=== PATIENT | male | born 1970 | race Caucasian/White ===

== ENCOUNTER → 2017-08-03 10:19 | Outpatient (CLI) | payer SELFPAY ==
--- NOTE | 2017-08-03 10:45 | MRI_ITS ---
STUDY: MRI LUMBAR SPINE WITHOUT CONTRAST REASON FOR EXAM: Male, 46 years old. Lower back pain and left hip pain TECHNIQUE: Standardized fat and water weighted pulse sequences were obtained in the sagittal and axial planes. COMPARISON: None FINDINGS: T12-L1: Normal endplates. Normal disc height, hydration and morphology. Normal bilateral facet joints. Normal central canal and bilateral lateral recesses. Normal bilateral intervertebral neural foramina. Decreased lumbar lordosis. There is no substantial scoliosis. Normal conus medullaris that terminates at T12-L1 L1-2: Normal endplates. Normal disc height, hydration and morphology. Normal bilateral facet joints. Normal central canal. Normal bilateral recesses and neural foramina L2-3: Endplate spurring.. Normal disc height, desiccation and tiny left foraminal disc protrusion.. Facet arthropathy.. Normal central canal and bilateral lateral recesses. Minor left neural foraminal encroachment L3-4: Endplate spurring. Normal disc height, desiccation and minor annular bulge. Normal bilateral facet joints. Normal central canal. Mild bilateral recess encroachment. Normal bilateral intervertebral neural foramina. L4-5: Endplate spurring. Normal disc height, desiccation and mild annular bulge in association with a large left posterolateral/foraminal disc extrusion with superior migration of the disc fragment.. Mild facet arthropathy.. Normal central canal. Moderate right lateral recess and neuroforaminal stenosis. Severe left lateral recess stenosis, supraarticular stenosis and neural foraminal stenosis. L5-S1: Normal endplates. Normal disc height, hydration and morphology. Mild bilateral facet arthropathy.. Normal central canal and bilateral lateral recesses. Normal bilateral intervertebral neural foramina. Normal visualized sacral ala. Normal visualized paraspinous soft tissue structures. MRI/Spine Lumbar (Routine) IMPRESSION: Multilevel disc degeneration. Multilevel spinal stenosis secondary to disc disease and bony hypertrophy most severe at L4-5 greater on the left. Findings as above Electronically Signed: Ihsan Collins MD at 18:01 EDT , Service support ,
== END ==
PROVIDERS: Family Provider Family Medicine; PCP Family Medicine
DX: M51.26 Other intervertebral disc displacement, lumbar region (principal)
CPT/HCPCS: 72148

== ENCOUNTER 2019-08-16 05:33 | Day surgery (SDC) | payer OTHER, SELFPAY ==
[2019-08-14 11:15] VITALS: BMI 24.3
--- NOTE | 2019-08-14 11:38 | HP_ITS ---
Intake Vital Signs 08/14/19 Height 5 ft 10 in 08/14/19 Weight: 170 lb 08/14/19 BMI 24.3 08/14/19 BP 169/82 H 08/14/19 Blood Pressure Location Rt brachial 08/14/19 Position Sitting 08/14/19 Respiration 18 08/14/19 Pulse 73 08/14/19 Pulse Source Monitor 08/14/19 Temp 97.5 F L 08/14/19 Temp Source Oral 08/14/19 Pulse Oximetry (%) 99 08/14/19 Oxygen Delivery Method room air Intake Visit Reasons: R Inguinal Hernia Chief Complaint: bulge right groin area Night Custodian Required: No Is patient in pain?: No Allergies No Known Allergies Allergy (Unverified 08/14/19 11:16) Medications levothyroxine 88 mcg tablet 88 mcg PO DAILY 08/14/19 [History Confirmed 08/14/19] [facility] Medical History (Updated 08/14/19 @ 11:[address] Gabe Berry MD) Inguinal hernia of right side without obstruction or gangrene (Acute) History of back problems (Acute) Hypothyroidism (Acute) Right inguinal hernia (Acute) Surgical History (Updated 08/14/19 @ 11:14 by Hannah Wright) history left ankle surgery (Acute) history right elbow surgery (Acute) Family History (Updated 08/14/19 @ 11:14 by Hannah Wright) Father Cancer pancreatic cancer Sister Thyroid disorder Social History (Updated 08/14/19 @ 11:[address] Gabe Berry MD) Smoking Status: Never smoker alcohol intake: current alcohol intake frequency: a few times a week substance use type: does not use HPI HPI HPI: BAILEY ROWE, is a 48 M who presents to the office today for HPI HPI Surgical H&P: Yes HPI: BAILEY ROWE, is a 48 M who presents to the office today for office consultation regarding a right inguinal hernia. The patient is referred by Dr. Roach and a written copy of my surgical consult recommendations will return to him. 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 He does a significant amount of hiking and hunting. He does not recall a specific episode but he was lifting a heavy game into a truck. That was several months back. He is scheduled in November to go to [place] which would require significant higher level hiking and elevation. He anticipates in being out in the [facility] for an extended period of time. He has not previously had inguinal hernia surgery. He has had right elbow and left ankle surgery. No history of DVT. He does use alcohol no tobacco. ROS General General: No weight change, appetite, fatigue, colon cancer, breast cancer or weakness HEENT HEENT: No difficulty swallowing, eye injury, eye surgery, swollen glands or hoarseness Endo Endocrine: Yes thyroid disease; no diabetes mellitus, thyroid cancer, Hair loss, heat intolerance or cold intolerance Skin Skin: No rash or changing moles Breast Breast: No left breast lump, right breast lump, nipple discharge, breast pain, abnormal mammogram, abnormal US or breast enlargement Musc Musculoskeletal: Yes back problems; no arthritis, rheumatoid arthritis, gout or joint pain Cardio Cardiovascular: No murmur, pacemaker, heart disease, atrial fibrillation, high blood pressure, heart attack, heart stent, palpitations, shortness of breat with exertion or chest pain Psych Psychiatric: No depression, anxiety or hearing voices Resp Respiratory: No shortness of breath, No sleep apnea, No cough, No COPD, No asthma, No emphysema, No wheezing Gastro Gastrointestinal: No abdominal pain, No nausea or vomiting, No diarrhea, No constipation, No blood in stool, No acid reflux, No hemorrhoids, No ulcers, No gallbladder problem, No black,tarry stools Moo Hematologic: No blood thinners, No blood disorders, No bleeding, No anemia, No blood clots Neuro Neurologic: No system reviewed and no additional complaints, except as docu, No as per HPI, No abnormal walking, No abnormal hearing, No abnormal movements, No abnormal speech, No behavioral changes, No burning sensations, No confusion, No seizure-like activity, No unsteadiness, No dizziness, No localized weakness, No frequent falls, No headache(s), No lack of coordination, No loss of vision, No memory loss, No numbness, No other visual disturbances, No radiating pain, No restless legs, No sensory deficit, No fainting, No tingling, No tremor(s), No weakness, No other Exam Const General: cooperative, healthy appearing, comfortable, no acute distress, well developed Nutritional Appearance: average body habitus Orientation: alert, awake [facility] Head: normal to inspection Eyes General: appearance normal, both eyes and all related structures Chest Chest palpation & inspection: normal inspection of the chest Breast Palpation: No nipple discharge Resp Effort & Inspection: normal respiratory effort Auscultation: clear to auscultation bilaterally Cardio Rate: regular rate Rhythm: regular rhythm Heart Sounds: no murmurs GI Palpation: soft, no hepatosplenomegaly Auscultation: normal bowel sounds Other: Testicles are descended no mass, reducible indirect right inguinal hernia, no similar defect on the left Musc Cervical Spine: normal cervical lordosis Skin General: no rashes or lesions noted Neuro General: alert, awake Extrem General: calf tenderness Psych Affect: normal affect Assessment & Plan Problems 1. Inguinal hernia of right side without obstruction or gangrene K40.90 Plan Indirect right inguinal hernia, reducible. Very physically active individual who anticipates being in the [facility] away from direct medical care. I am recommending to him a laparoscopic right inguinal hernia repair. I discussed technique, benefit, risk, alternatives. He has had an opportunity to ask and have questions answered. He is interested in proceeding with repair at a definitive time so that he can then pursue training for his upcoming adventure. He has had an opportunity to ask and have questions answered. We will schedule and proceed at his discretion. I very much appreciate the kind opportunity of assisting with surgical care. Cc: Dr. Hilton Berry M.D., F.A.C.S. Coding Level of Care Code 03223 Diagnoses Inguinal hernia of right side without obstruction or gangrene K40.90 08/14/19 1139 <Electronically signed by Gabe lindsay MD> Date _ Gabe Berry MD
--- NOTE | 2019-08-15 12:56 | EKG12_ITS ---
Test Reason : PREOP Blood Pressure : / mmHG Vent. Rate : 069 BPM Atrial Rate : 069 BPM P-R Int : 160 ms QRS Dur : 104 ms QT Int : 394 ms P-R-T Axes : 073 059 055 degrees QTc Int : 422 ms Normal sinus rhythm Normal ECG Confirmed by LOCO BARROS, JON ([id number]), image editor TISHA WILSON ([id number]) on 08/16/2019 9:01:36 AM Referred By: Gabe Berry Confirmed By:JON ADAN MD
[2019-08-15 14:07] LABS: Thyroid Stim Hormone (TSH) 0.71 uIU/mL (0.358-3.74)
[2019-08-16 05:52] VITALS: BP 150/85; PULSE 78; RESP 15; TEMP 36.7; O2SAT 100; BMI 25.0
[2019-08-16] MEDS: Lactated Ringers 1,000 ML 15 ML IV (06:01)
--- NOTE | 2019-08-16 06:09 | HP.PCM_ITS ---
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 Gabe Berry MD) Inguinal hernia of right side without obstruction or gangrene (Acute) History of back problems (Acute) Hypothyroidism (Acute) Right inguinal hernia (Acute) Surgical History (Updated 08/14/19 @ 11:14 by Hannah Wright) history left ankle surgery (Acute) history right elbow surgery (Acute) Family History (Updated 08/14/19 @ 11:14 by Hannah Wright) Father Cancer pancreatic cancer Sister Thyroid disorder Social History (Updated 08/14/19 @ 11:[address] Gabe Berry MD) Smoking Status: Never smoker alcohol intake: current alcohol intake frequency: a few times a week substance use type: does not use HPI HPI HPI: BAILEY ROWE, is a 48 M who presents to the office today for HPI HPI Surgical H&P: Yes HPI: BAILEY ROWE, is a 48 M who presents to the office today for office consultation regarding a right inguinal hernia. The patient is referred by Dr. Roach and a written copy of my surgical consult recommendations will return to him. 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 He does a significant amount of hiking and hunting. He does not recall a specific episode but he was lifting a heavy game into a truck. That was several months back. He is scheduled in November to go to [place] which would require significant higher level hiking and elevation. He anticipates in [facility] extended period of time. He has not previously had inguinal hernia surgery. He has had right elbow and left ankle surgery. No history of DVT. He does use alcohol no tobacco. ROS General General: No weight change, appetite, fatigue, colon cancer, breast cancer or weakness HEENT HEENT: No difficulty swallowing, eye injury, eye surgery, swollen glands or hoarseness Endo Endocrine: Yes thyroid disease; no diabetes mellitus, thyroid cancer, Hair loss, heat intolerance or cold intolerance Skin Skin: No rash or changing moles Breast Breast: No left breast lump, right breast lump, nipple discharge, breast pain, abnormal mammogram, abnormal US or breast enlargement [facility] Musculoskeletal: Yes back problems; no arthritis, rheumatoid arthritis, gout or joint pain Cardio Cardiovascular: No murmur, pacemaker, heart disease, atrial fibrillation, high blood pressure, heart attack, heart stent, palpitations, shortness of breat with exertion or chest pain Psych Psychiatric: No depression, anxiety or hearing voices Resp Respiratory: No shortness of breath, No sleep apnea, No cough, No COPD, No asthma, No emphysema, No wheezing Gastro Gastrointestinal: No abdominal pain, No nausea or vomiting, No diarrhea, No constipation, No blood in stool, No acid reflux, No hemorrhoids, No ulcers, No gallbladder problem, No black,tarry stools Moo Hematologic: No blood thinners, No blood disorders, No bleeding, No anemia, No blood clots Neuro Neurologic: No system reviewed and no additional complaints, except as docu, No as per HPI, No abnormal walking, No abnormal hearing, No abnormal movements, No abnormal speech, No behavioral changes, No burning sensations, No confusion, No seizure-like activity, No unsteadiness, No dizziness, No localized weakness, No frequent falls, No headache(s), No lack of coordination, No loss of vision, No memory loss, No numbness, No other visual disturbances, No radiating pain, No re stless legs, No sensory deficit, No fainting, No tingling, No tremor(s), No weakness, No other Exam Const General: cooperative, healthy appearing, comfortable, no acute distress, well developed Nutritional Appearance: average body habitus Orientation: alert, awake [facility] Head: normal to inspection Eyes General: appearance normal, both eyes and all related structures Chest Chest palpation & inspection: normal inspection of the chest Breast Palpation: No nipple discharge Resp Effort & Inspection: normal respiratory effort Auscultation: clear to auscultation bilaterally Cardio Rate: regular rate Rhythm: regular rhythm Heart Sounds: no murmurs GI Palpation: soft, no hepatosplenomegaly Auscultation: normal bowel sounds Other: Testicles are descended no mass, reducible indirect right inguinal hernia, no similar defect on the left [facility] Cervical Spine: normal cervical lordosis Skin General: no rashes or lesions noted Neuro General: alert, awake Extrem General: calf tenderness Psych Affect: normal affect Assessment & Plan Problems 1. Inguinal hernia of right side without obstruction or gangrene K40.90 Plan Indirect right inguinal hernia, reducible. Very physically active individual who anticipates being [facility] medical care. I am recommending to him a laparoscopic right inguinal hernia repair. I discussed technique, benefit, risk, alternatives. He has had an opportunity to ask and have questions answered. He is interested in proceeding with repair at a definitive time so that he can then pursue training for his upcoming adventure. He has had an opportunity to ask and have questions answered. We will schedule and proceed at his discretion. I very much appreciate the kind opportunity of assisting with surgical care. Cc: Dr. Hilton Berry M.D., F.A.C.S. Coding Level of Care Code 48782 Diagnoses Inguinal hernia of right side without obstruction or gangrene K40.90 08/14/19 1139 <Electronically signed by Gabe lindsay MD> Date _ Gabe Berry MD Cosigner Signature: Date (if applicable) CC: Hilton Roach MD ~ I have re-examined the patient. There are no clinical changes since date of exam.
--- NOTE | 2019-08-16 07:25 | DCINST_ITS ---
Discharge Diet: Light diet - advance as tolerated - if you have questions about your diet instructions, please talk to you doctor. Discharge Activity: May Not Drive - for 1 week or while taking narcotic pain medicine. May shower in (days): 1 Lifting Restrictions: 10 pounds Call your doctor if your incision/area has: Continuous Slow Oozing, Sudden Increased Bleeding, Increased Pain/ Swelling, Increased Redness, Foul Smelling Discharge Call your doctor if you observe: Fever of 101 or Higher Suture Line Care: Avoid Pulling/Pushing, Avoid Pinching/Bending Additional Dressing/Incision Instructions:: Change or remove dressing in 4 days. Leave steri-strips in place for 1 week. Allergies/Adverse Reactions: Allergies No Known Allergies Allergy (Verified 08/16/19 05:42) Medications to take at Discharge levothyroxine 88 mcg tablet 88 mcg PO DAILY 08/14/19 Primary Care Physician: Hilton Roach MD [Primary Care Provider] - Test Results: Test results from this visit will be discussed in further detail at your follow- up appointment, if applicable. Please Follow Up With: Gabe Berry MD - [phone] When: Call to make an appointment to be seen in about 10 days. Virtual
[2019-08-16] MEDS: Cefazolin 2 GM in 0.9% Normal Saline 100 ML IV (07:27)
--- NOTE | 2019-08-16 08:37 | PCM.OPRPT ---
Problem List (1) Inguinal hernia of right side without obstruction or gangrene Status: Acute Report of Operation Date of Procedure: 08/16/19 Pre-Operative Diagnosis: Symptomatic right inguinal hernia Post-Operative Diagnosis: Symptomatic direct right inguinal hernia Surgery/Procedure Performed:: Laparoscopic right inguinal hernia repair. Bard large 3D max mesh. Lot number [id number]. Reference [id number]. Expiry date 04/08/2024. Secure strap lot number [id number]. Expiry date 11/2020 Description of Surgical Findings:: Timeout and informed consent was obtained. 48-year-old gent was taken operating placement table underwent general endotracheal intubation esthesia. Ancef 2 g given intravenously. The abdomen sterilely prepped draped. 0.5% Marcaine was used as a local anesthetic. Throughout the procedure total 30 cc was used. Skin sites were pre-anesthetized. A vertical infraumbilical incision was created holding sutures of 0 Vicryl placed varies needle inserted saline drop test performed the abdomen was insufflated with CO2 to a pressure of 10 mm mercury pressure and a 10mm trocar inserted 10 laparoscope inserted no evidence of trocar injuries left groin was inspected noted to be solid and intact the right groin had evidence of a direct right inguinal hernia 5 mm trochars were placed in the right and left lower quadrants. The peritoneum superior lateral to the internal ring was incised carried medially. The peritoneum was carefully tediously completely dissected free. The direct space indirect area and femoral area completely visualized. A Bard 3D max large right mesh was placed into position and nicely protected the direct defect area femoral area and indirect area. It was secured laterally superiorly and medially with secure strap. Very nice positioning was achieved. The peritoneum was approximated to itself with a combination of a hemo-lock clips and secure strap. Complete obliteration of the mesh was achieved. The abdomen was allowed to deflate of the CO2 through an antiviral valve. Trochars were removed. The fascia at the umbilicus was approximated with interrupted 0 Vicryl [id number] suture. Skin edges approximated opted for Monocryl subdermal stitches. Steri-Strips Telfa OpSite dressings applied. Sponge and instrument and needle counts were reported to the surgeon to be correct. Specimens none. Drains none. Blood loss minimal. The patient was taken to the recovery area in satisfactory condition without apparent complication Gabe D. Cebul, M.D., F.A.C.S. Type of Anesthesia:: General Anesthesiologist: Patria Rubio
[2019-08-16] MEDS: Bupivacaine Mpf 0.5% 30 ML VIAL (08:38)
[2019-08-16 09:00] VITALS: BP 142/94; BP 150/85; PULSE 79; RESP 16; TEMP 36.3; O2SAT 100
[2019-08-16 09:08] VITALS: BP 134/101; BP 150/85; PULSE 69; RESP 16; O2SAT 100
[2019-08-16 09:20] VITALS: BP 148/96; BP 150/85; PULSE 72; RESP 16; O2SAT 100
[2019-08-16 09:31] VITALS: BP 147/89; BP 150/85; PULSE 70; RESP 16; TEMP 36.7; O2SAT 99
[2019-08-16 10:33] VITALS: BP 146/70; BP 150/85; PULSE 75; RESP 16; TEMP 36.5; O2SAT 97
== END 2019-08-16 10:51 | disposition home or self-care (01) ==
LOC: SDC 05:35 → AC 05:35
PROVIDERS: Anesthesiology; PCP Family Medicine; Referring Provider Surgery; Visit Provider Surgery
PROC: (CPT 49650; principal; 2019-08-16 07:10)
DX: K40.90 Unilateral inguinal hernia, without obstruction or gangrene, not specified as recurrent (principal); E03.9 Hypothyroidism, unspecified; Z79.899 Other long term (current) drug therapy
CPT/HCPCS: 00840; 49650; 36415; 84443; 93005; J7120; C1781; J2405

== ENCOUNTER 2022-06-26 07:25 | Day surgery (SDC) | payer OTHER, SELFPAY ==
[2022-06-26 07:58] VITALS: BP 129/85; PULSE 69; RESP 12; TEMP 36.5; O2SAT 98; BMI 24.0
[2022-06-26] MEDS: Lactated Ringers 1,000 ML 15 ML IV (08:04)
--- NOTE | 2022-06-26 08:30 | EGD_PTH ---
PATIENT: BAILEY ROWE LOC: EN U#:[id number] AGE/SX: 51/M ROOM: RE06/26/[address]: Dr. Gabe Berry MD : 1970 BED: DIS: 06/26/2022 SPEC #: [id number] RECD: 06/26/22 10:51 STATUS: YASH ABILIO #: [id number] LUZ: 06/26/22 08:[address]: Gabe Berry DEPT: SURGICAL PATHOLOGY RECD BY: Aura Trejo ENTERED: 06/26/22 11:40 SP TYPE: EGD BIOPSY OT DR: Dr. Hilton Roach MD Tissues: A - Duodenum, NOS B - Gastric mucous membrane C - Esophagus, NOS D - Cecum, NOS E - Transverse colon Procedures: Surgery Specimen Level IV HEADER OPERATION: Colonoscopy, EGD [place] biopsy PRE-OP DIAGNOSIS: Dyspepsia, screening TISSUE SUBMITTED: A - Duodenum biopsy, B - Antrum biopsy for histo and H. pylori, C - Distal esophagus biopsy, D - Cecum polyp biopsy, E - Mid transverse polyp MICROSCOPIC DIAGNOSIS A. Duodenum, biopsy: A fragment of duodenal mucosa with mild Candida gland hyperplasia. B. Antrum, biopsy: Mild gastritis. See microscopic description and comment. C. Distal esophagus, biopsy: Fragments of squamous mucosa with changes consistent with gastroesophageal reflux disease. D. Cecum polyp, biopsy: Fragments of tubular adenoma. E. Mid transverse colon polyp, biopsy: Fragments of tubular adenoma. SJ:liz 06/29/2022 COMMENT B. The results of immunohistochemistry for Helicobacter pylori will be reported separately ([id number]). MICROSCOPIC DESCRIPTION Slides are reviewed. B. The specimen shows fragments of gastric mucosa with chronic inflammatory cell infiltrates in the lamina propria consisting of lymphocytes and plasma cells, consistent with mild chronic gastritis. GROSS DESCRIPTION A - Received in fixative is one container labeled with the patient's name and designated duodenum biopsy. The specimen consists of one irregular fragment of light hameed soft tissue that measures 0.5 x 0.3 x 0.1 cm. The specimen is totally submitted in one cassette. B - Received in fixative is one container labeled with the patient's name and designated antrum biopsy. The specimen consists of two irregular fragments of light hameed soft tissue that in aggregate measure 0.4 x 0.3 x 0.1 cm. The specimen is totally submitted in one cassette. C - Received in fixative is one container labeled with the patient's name and designated distal esophagus biopsy. The specimen consists of multiple irregular fragments of light hameed soft tissue that in aggregate measure 1.8 x 0.5 x 0.1 cm. The specimen is totally submitted in one cassette. D - Received in fixative is one container labeled with the patient's name and designated cecum polyp biopsy. The specimen consists of multiple irregular fragments of light hameed soft tissue that in aggregate measure 0.8 x 0.2 x 0.1 cm. The specimen is totally submitted in one cassette. E - Received in fixative is one container labeled with the patient's name and designated mid transverse polyp biopsy. The specimen consists of multiple irregular fragments of light hameed soft tissue that in aggregate measure 1.4 x 0.3 x 0.1 cm. The specimen is totally submitted in one cassette. / SJ:rg 06/26/2022 TC:1 CPT: 23240 x5
--- NOTE | 2022-06-26 08:30 | IMM_PTH ---
PATIENT: BAILEY ROWE LOC: EN U#:[id number] AGE/SX: 51/M ROOM: RE06/26/[address]: Dr. Gabe Berry MD : 1970 BED: DIS: 06/26/2022 SPEC #: [id number] RECD: 06/26/22 13:00 STATUS: YASH ABILIO #: [id number] LUZ: 06/26/22 08:[address]: Gabe Berry DEPT: IMMUNOHISTOCHEMISTRY RECD BY: Krystyna Perez ENTERED: 06/26/22 13:01 SP TYPE: IMMUNO OTHR DR: Dr. Hilton Roach MD Tissues: B - Stomach, NOS Procedures: H Pylori (initial) PHYSICIAN & INSTITUTION [place] [id number] SPECIMEN INFORMATION: Tissue Source: B ? Antrum biopsy Clinical Info: Dyspepsia, screening Specimen Number: [id number] CPT code: 08201 METHODOLOGY: Deparaffinized sections of prefer/formalin-fixed tissue or PAP/DQ stained slides are incubated with monoclonal/polyclonal antibodies/oligonucleotide probes. Localization is made via biotin free immunoperoxidase method. Appropriate controls are performed and reacted as expected. Results on target cell population are indicated in the following table: RESULTS: ANTIBODY / CLONE RESULT Block B H Pylori (polyclonal) negative These tests were developed and their performance characteristics determined by [facility]. They may not have been cleared or approved by the U.S. Food and Drug Administration. The FDA has determined that such clearance or approval is not necessary. The above immunohistochemical/dualISH markers are ordered and reviewed by the Pathologist. INTERPRETATION: B. Antrum, biopsy: Negative for Helicobacter pylori organisms. SJ:liz 06/29/2022
--- NOTE | 2022-06-26 08:41 | PCM.HP.BLA ---
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 Aircraft Required: No Is patient in pain?: No Allergies No Known Allergies Allergy (Verified 06/18/22 09:14) Medications levothyroxine 88 mcg tablet (Synthroid) 88 mcg PO DAILY 08/14/19 [History Confirmed 06/18/22] valacyclovir 1 gram tablet 2,000 mg PO Q12H PRN 06/18/22 [History Confirmed 06/18/22] PFSH Medical History?(Updated 06/18/22 @ 09:13 by Hannah Wright) Dyspepsia GERD (gastroesophageal reflux disease) History of back problems Hypothyroidism Inguinal hernia of right side without obstruction or gangrene Right inguinal hernia Screening for intestinal cancer Surgical History?(Updated 11/10/21 @ 17:08 by Kristen Quezada) history left ankle surgery History of right inguinal hernia repair history right elbow surgery Family History? Father Cancer ?? ? pancreatic cancerSister Thyroid disorder Social History?(Updated 10/17/19 @ 10:02 by Raisa PATTERSON, PA-C) Smoking Status:? Never smoker alcohol intake:? current alcohol intake frequency: a few times a week substance use type:? does not use HPI HPI HPI: 51-year-old gentleman is being referred by Dr. Hilton Roach for surgical consultation regarding dyspepsia and the need for screening colonoscopy.? The patient is complaining of heartburn and epigastric discomfort.? A written copy of my surgical consult recommendations will be returned to Dr. Roach.? It is of note that on August 16, 2019 I assisted the patient with a laparoscopic right inguinal hernia repair for symptomatic direct right inguinal hernia. The patient was very appreciative of his right inguinal hernia repair.? Soon thereafter he was able [place] go [place] on [place] and states that he was very successful. On this presentation however he states that his job requirements have increased and the stress of work has significantly increased.? He has had problems with heartburn and indigestion.? He was on Rolaids twice a day.? To try to help ameliorate his symptoms he decreased his caffeine consumption and significantly decreased his alcohol consumption.? That is been over the past 2 weeks and his epigastric crampy discomfort has improved.? He he has been able to decrease the amount of Rolaids he is taken.? He has never had an upper endoscopy.? No tobacco use.? He has not noticed any bright red blood per rectum or melena.? He has never had a colonoscopy. He denies any family history of colon cancer.? He has had some weight loss but states that he thinks that was mostly intentional. ROS General General: No weight change, appetite, fatigue, colon cancer, breast cancer or weakness HEENT HEENT: No difficulty swallowing, eye injury, eye surgery, swollen glands or hoarseness Endo Endocrine: Yes thyroid disease; No diabetes mellitus, thyroid cancer, Hair loss, heat intolerance or cold intolerance Skin Skin: No rash or changing moles Breast Breast: No left breast lump, right breast lump, nipple discharge, breast pain, abnormal mammogram, abnormal US or breast enlargement Musc Musculoskeletal: No back problems, arthritis, rheumatoid arthritis, gout or joint pain Cardio Cardiovascular: No murmur, pacemaker, heart disease, atrial fibrillation, high blood pressure, heart attack, heart stent, palpitations, shortness of breat with exertion or chest pain Psych Psychiatric: No depression, anxiety or hearing voices Resp Respiratory: No shortness of breath, No sleep apnea, No cough, No COPD, No asthma, No emphysema and No wheezing Gastro Gastrointestinal: No abdominal pain, No nausea or vomiting, No diarrhea, No constipation, No blood in stool, Yes acid reflux, No hemorrhoids, No ulcers, No gallbladder problem and No black,tarry stools Moo Hematologic: No blood thinners, No blood disorders, No bleeding, No anemia and No blood clots Neuro Neurologic: No system reviewed and no additional complaints, except as documented, No as per HPI, No abnormal gait, No abnormal hearing, No abnormal movements, No abnormal speech, No behavioral changes, No burning sensations, No confusion, No convulsions, No disequilibrium, No dizziness, No localized weakness, No frequent falls, No headache(s), No lack of coordination, No loss of vision, No memory loss, No numbness, No other visual disturbances, No radicular pain, No restless legs, No sensory deficit, No syncope, No tingling, No tremor(s), No weakness and No other Exam Const General: cooperative, healthy appearing, comfortable and no acute distress Nutritional Appearance: average body habitus [facility] Head: normal to inspection Eyes General: appearance normal, both eyes and all related structures Neck Neck: normal visual inspection Chest Chest palpation & inspection: normal inspection of the chest Resp Effort & Inspection: normal respiratory effort Auscultation: clear to auscultation bilaterally Cardio Rhythm: regular rhythm GI Palpation: soft and no hepatosplenomegaly Musc Cervical Spine: normal cervical lordosis Skin General: no rashes or lesions noted Neuro General: patient alert and patient awake Extrem General: no calf tenderness Psych Appearance: grossly normal Assessment and Plan Assessment and Plan (1) Dyspepsia: ?Status:?Acute (2) Screening for intestinal cancer: ?Status:?Acute ?Plan: Currently high stress job likely aggravating epigastric pain and reflux symptoms.? I do propose for him a esophagogastroduodenoscopy with biopsy if indicated. He has never had a screening colonoscopy.? I do propose for him a screening colonoscopy with possible biopsy or polypectomy as indicated. As noted again is very pleased with his laparoscopic right inguinal hernia repair.? He has had an opportunity to ask and have questions answered.? We will schedule and proceed at his discretion. Copy: Dr. Hilton Berry M.D., F.A.C.S. I have examined the patient and the H&P has been reviewed. There are no clinical changes since date of exam. Gabe Berry M.D., F.A.C.S.
[2022-06-26 10:00] VITALS: BP 129/85; BP 96/60; PULSE 74; RESP 16; TEMP 36.2; O2SAT 97
--- NOTE | 2022-06-26 10:00 | OP.CCLET_ITS ---
06/26/2022 Hilton Roach Re : Upper GI endoscopy procedure for Rico Shafer Dear Doc This procedure was performed on Sunday, June 26, 2022. My impressions and recommendations are as follows: Impressions : - LA Grade A reflux esophagitis. Biopsied. - Small hiatal hernia. - Erythematous mucosa in the antrum. Biopsied. - Normal examined duodenum. Biopsied. Recommendations : - Discharge patient to home. - Resume previous diet. - Continue present medications. - Use Prilosec (omeprazole) 40 mg PO daily. - Telephone my office for pathology results in 1 week. I do believe that the source of the patient's epigastric pain and heartburn is secondary to small hiatal hernia with reflux esophagitis. My findings are described in the full procedure note, which is enclosed. If I can be of further assistance, please feel free to contact me at Doctor phone number(s): Work: . Sincerely, Gabe Berry MD 06/26/2022 9:59:43 AM This report has been signed electronically.
--- NOTE | 2022-06-26 10:00 | OP.EGD_ITS ---
Patient Name: Rico Shafer Procedure Date: 06/26/2022 9:16 AM Date of : 1970 Age: 51 Procedure: Upper GI endoscopy Indications: Epigastric abdominal pain Providers: Gabe Berry MD Medicines: See the Anesthesia note for documentation of the administered medications Complications: No immediate complications. Procedure: Pre-Anesthesia Assessment: - Prior to the procedure, a History and Physical was performed, and patient medications and allergies were reviewed. The patient's tolerance of previous anesthesia was also reviewed. The risks and benefits of the procedure and the sedation options and risks were discussed with the patient. All questions were answered, and informed consent was obtained. Prior Anticoagulants: The patient has taken no previous anticoagulant or antiplatelet agents. ASA Grade Assessment: I - A normal, healthy patient. After reviewing the risks and benefits, the patient was deemed in satisfactory condition to undergo the procedure. After obtaining informed consent, the endoscope was passed under direct vision. Throughout the procedure, the patient's blood pressure, pulse, and oxygen saturations were monitored continuously. The colonoscope was introduced through the mouth, and advanced to the second part of duodenum. The upper GI endoscopy was accomplished without difficulty. The patient tolerated the procedure well. Scope In: 9:22:31 AM Scope Out: 9:33:40 AM Total Procedure Duration Time 0 hours 11 minutes 9 seconds Findings: LA Grade A (one or more mucosal breaks less than 5 mm, not extending between tops of 2 mucosal folds) esophagitis with no bleeding was found 41 cm from the incisors. Biopsies were taken with a cold forceps for histology. A small hiatal hernia was present. Diffuse mildly erythematous mucosa without bleeding was found in the gastric antrum. Biopsies were taken with a cold forceps for histology. The examined duodenum was normal. Biopsies were taken with a cold forceps for histology. Impression: - LA Grade A reflux esophagitis. Biopsied. - Small hiatal hernia. - Erythematous mucosa in the antrum. Biopsied. - Normal examined duodenum. Biopsied. Recommendation: - Discharge patient to home. - Resume previous diet. - Continue present medications. - Use Prilosec (omeprazole) 40 mg PO daily. - Telephone my office for pathology results in 1 week. I do believe that the source of the patient's epigastric pain and heartburn is secondary to small hiatal hernia with reflux esophagitis. Procedure Code(s): --- Professional --- 95444, Esophagogastroduodenoscopy, flexible, transoral; with biopsy, single or multiple Diagnosis Code(s): --- Professional --- K21.0, Gastro-esophageal reflux disease with esophagitis K44.9, Diaphragmatic hernia without obstruction or gangrene K31.89, Other diseases of stomach and duodenum R10.13, Epigastric pain CPT copyright 2017 [employer]. All rights reserved. The codes documented in this report are preliminary and upon research tech review may be revised to meet current compliance requirements. Gabe Berry MD 06/26/2022 9:59:43 AM This report has been signed electronically. Number of Addenda: 0 Note Initiated On: 06/26/2022 9:16 AM
[2022-06-26 10:05] VITALS: BP 129/85; BP 96/61; PULSE 70; RESP 16; O2SAT 100
--- NOTE | 2022-06-26 10:05 | OP.COLON_ITS ---
Patient Name: Rico Shafer Procedure Date: 06/26/2022 9:34 AM Date of : 1970 Age: 51 Procedure: Colonoscopy Indications: Screening for colorectal malignant neoplasm Providers: Gabe Berry MD Medicines: See the Anesthesia note for documentation of the administered medications Patient Profile: Last Colonoscopy: none. The patient's first colonoscopy is today. Complications: No immediate complications. Procedure: Pre-Anesthesia Assessment: - Prior to the procedure, a History and Physical was performed, and patient medications and allergies were reviewed. The patient's tolerance of previous anesthesia was also reviewed. The risks and benefits of the procedure and the sedation options and risks were discussed with the patient. All questions were answered, and informed consent was obtained. Prior Anticoagulants: The patient has taken no previous anticoagulant or antiplatelet agents. ASA Grade Assessment: I - A normal, healthy patient. After reviewing the risks and benefits, the patient was deemed in satisfactory condition to undergo the procedure. After I obtained informed consent, the scope was passed under direct vision. Throughout the procedure, the patient's blood pressure, pulse, and oxygen saturations were monitored continuously. The colonoscope was introduced through the anus and advanced to the cecum, identified by appendiceal orifice and ileocecal valve. The colonoscopy was performed without difficulty. The patient tolerated the procedure well. The quality of the bowel preparation was good. The ileocecal valve and the appendiceal orifice were photographed. Scope In: 9:35:07 AM Scope Withdrawal Time 0 hours 12 minutes 37 seconds Scope Out: 9:54:36 AM Total Procedure Duration Time 0 hours 19 minutes 29 seconds Findings: The digital rectal exam findings include enlarged prostate. A 3 mm polyp was found in the cecum. The polyp was sessile. The polyp was removed with a cold biopsy forceps. Resection and retrieval were complete. A 7 mm polyp was found in the mid transverse colon. The polyp was semi-sessile. The polyp was removed with a hot snare. Resection and retrieval were complete. Scattered diverticula were found in the sigmoid colon. Impression: - Enlarged prostate found on digital rectal exam. - One 3 mm polyp in the cecum, removed with a cold biopsy forceps. Resected and retrieved. - One 7 mm polyp in the mid transverse colon, removed with a hot snare. Resected and retrieved. - Diverticulosis in the sigmoid colon. Recommendation: - Discharge patient to home. - Resume previous diet. - Continue present medications. - Repeat colonoscopy in 3 years for surveillance based on pathology results. - Telephone my office for pathology results in 1 week. Procedure Code(s): --- Professional --- 06135, Colonoscopy, flexible; with removal of tumor(s), polyp(s), or other lesion(s) by snare technique 62152, 59, Colonoscopy, flexible; with biopsy, single or multiple Diagnosis Code(s): --- Professional --- Z12.11, Encounter for screening for malignant neoplasm of colon D12.0, Benign neoplasm of cecum D12.3, Benign neoplasm of transverse colon (hepatic flexure or splenic flexure) N40.0, Benign prostatic hyperplasia without lower urinary tract symptoms K57.30, Diverticulosis of large intestine without perforation or abscess without bleeding CPT copyright 2017 [employer]. All rights reserved. The codes documented in this report are preliminary and upon inpatient coder review may be revised to meet current compliance requirements. Gabe Berry MD 06/26/2022 10:04:25 AM This report has been signed electronically. Number of Addenda: 0 Note Initiated On: 06/26/2022 9:34 AM
--- NOTE | 2022-06-26 10:05 | OP.CCLET_ITS ---
06/26/2022 Hilton Roach Re : Colonoscopy procedure for Rico Shafer Dear Doc This procedure was performed on Sunday, June 26, 2022. My impressions and recommendations are as follows: Impressions : - Enlarged prostate found on digital rectal exam. - One 3 mm polyp in the cecum, removed with a cold biopsy forceps. Resected and retrieved. - One 7 mm polyp in the mid transverse colon, removed with a hot snare. Resected and retrieved. - Diverticulosis in the sigmoid colon. Recommendations : - Discharge patient to home. - Resume previous diet. - Continue present medications. - Repeat colonoscopy in 3 years for surveillance based on pathology results. - Telephone my office for pathology results in 1 week. My findings are described in the full procedure note, which is enclosed. If I can be of further assistance, please feel free to contact me at Doctor phone number(s): Work: . Sincerely, Gabe Berry MD 06/26/2022 10:04:25 AM This report has been signed electronically.
[2022-06-26 10:10] VITALS: BP 105/73; BP 129/85; PULSE 67; RESP 16; O2SAT 99
[2022-06-26 10:15] VITALS: BP 106/66; BP 129/85; PULSE 63; RESP 16; TEMP 36.1; O2SAT 100
[2022-06-26 10:35] VITALS: BP 129/85
== END 2022-06-26 10:37 | disposition home or self-care (01) ==
LOC: EN 07:26 → AC 07:27
PROVIDERS: PCP Family Medicine; Referring Provider Family Medicine; Visit Provider Surgery
PROC: 0DJD8ZZ Inspection of Lower Intestinal Tract, Via Natural or Artificial Opening Endoscopic (ICD-10-PCS; CPT 45378; principal; 2022-06-26 08:25)
DX: Z12.11 Encounter for screening for malignant neoplasm of colon (principal); K44.9 Diaphragmatic hernia without obstruction or gangrene; K57.30 Diverticulosis of large intestine without perforation or abscess without bleeding; K21.00 Gastro-esophageal reflux disease with esophagitis, without bleeding; N40.0 Benign prostatic hyperplasia without lower urinary tract symptoms; K29.70 Gastritis, unspecified, without bleeding; D12.0 Benign neoplasm of cecum; D12.3 Benign neoplasm of transverse colon; E03.9 Hypothyroidism, unspecified; Z79.890 Hormone replacement therapy; R13.10 Dysphagia, unspecified
CPT/HCPCS: 45380; 43239; 45385; 88305; 88342; J7120; J2405

== ENCOUNTER → 2023-04-29 | Outpatient (CLI) | payer OTHER, SELFPAY ==
--- OUTSIDE RECORDS SUMMARY | 2023-04-29 16:20 | XMS RPT_ITS | CCD ---
Author Name Unknown Address [address] [place] [address] Organization [facility] Care Team Providers Care Director Of Event Management Name Role Phone Yennifer Roach David J Unavailable Yennifer Marmolejo Unavailable Unavailable Yennifer Roach Primary Care Provider DEWEY CROCKETT II Attending DEWEY Norton II Referring YENNIFER Mccauley Primary Care Unavailable DEWEY CROCKETT II Attending YENNIFER Mccauley Primary Care Unavailable BING CROCKETT Attending BING Norton Referring YENNIFER Mccauley Primary Care Unavailable BING CROCKETT Attending YENNIFER Mccauley Primary Care Unavailable Yennifer Roach MD Primary Care Provider Medications Completed/Discontinued Medications Medication Drug Class(es) Dates Sig (Normalized) Sig (Original) levothyroxine sodium 0.088 mg oral tablet (2 sources) l-Thyroxine Start: 07-05-2014 SYNTHROID 88 mcg tablet MULTIVITAMIN ORAL (2 sources) MULTIVITAMIN ORA L Take by mouth. 0 Active Problems Active Problems Problem Classification Problem Date Documented Da te Episodic/Chronic Blindness and vision defects (12 sources) Bilateral hyperopia of eyes; Translations: [Hypermetropia, bilateral] Onset: 07-19-2014 12-07-2022 Episodic Past or Other Problems Problem Classification Problem Date Documented Da te Episodic/Chronic Inflammation; infection of eye (except that caused by tuberculosis or sexually transmitteddisease) (2 sources) Internal hordeolum; Translations: [Hordeolum internum unspecified eye, unspecified eyelid] Onset: 07-19-2014 07-19-2014 Episodic Other eye disorders (2 sources) Meibomian gland dysfunction ; Translations: [Meibomian gland dysfunction of unspecified eye, unspecified eyelid] Onset: 07-19-2014 07-19-2014 Episodic Encounters Encounter Date Encounter Type Care Provider Facility Start: 01-13-2023 End: 01-13-2023 ambulatory DEWEY CROCKETT II Facility:[facility] Start: 01-13-2023 End: 01-13-2023 Patient encounter procedure Dewey Kendra Antione OD Work Phone: Optometry Plan of Treatment Date Care Activity Detail Author Start: 12-11-2022 Influenza vaccination C [facility] Start: 04-12-2022 DEPRESSION ASSESSMENT DEPRESSION ASS ESSMENT [facility] Start: 05-19-2021 COVID-19 VACCINE (4 - Moderna series) COVID-19 VACCINE (4 - Moderna series) [facility] Start: 10-26-2019 SHINGRIX VACCINE (1 of 2) SHINGRIX V ACCINE (1 of 2) [facility] Start: 2014 COLOGUARD (FIT-DNA) COLOGUARD (FIT-D NA) [facility] Start: 2014 Colonoscopy COLONOSCOPY [facility] Start: 2014 COLORECTAL CANCER SCREENING COLORECTAL CANCER SCREENING [facility] Start: [address] COLONOGRAPHY [facility] Start: 2014 DIABETES SCREEN DIABETES SCREEN [facility] Start: 2014 Diabetes Screening Diabetes Screenin g [facility] Start: 2014 FECAL OCCULT BLOOD FECAL OCCULT BLOO D [facility] Start: 2014 SIGMOIDOSCOPY SIGMOIDOSCOPY [facility] Start: 2004 Lipid 1996 panel - S katelyn or Plasma Lipid Screening [facility] Start: 2004 LIPID SCREEN LIPID SCREEN [facility] Start: 1988 Urine microalbumin profile [facility] Start: 10-26-1987 HEPATITIS C SCREENING HEPATITIS C SC REENING [facility] Start: 10-26-1987 HIV SCREENING HIV SCREENING [facility] Start: 1969 HEPATITIS B (1 of 3 - 3-dose series) HEPATITIS B (1 of 3 - 3-dose series) [facility] Start: 1969 Hepatitis B Vaccine (1 of 3 - 3-dose series) Hepatitis B Vaccine (1 of 3 - 3-dose series) [facility] Payers Date Payer Category Payer Unknown [id number] 2014 Unknown 2014 Unknown [id number] Social History Date Type Detail Facility Start: 07-30-2020 Tobacco smoking stat us NHIS Ex-smoker [facility] History of tobacco use Current smoker [facility] Start: 07-30-2020 Tobacco use and exposure Forme r smokeless tobacco user [facility] End: 07-19-2006 History of tobacco use Chews Tobacco [facility] Start: 12-07-2022 End: 01-06-2023 Alcohol intake Current drinker of alcohol (finding) [facility] Start: 12-07-2022 End: 01-13-2023 Alcohol intake [facility] Start: 11-23-2022 End: 01-13-2023 Tobacco use panel [facility] National Score (1-10 0), lower number is lower risk 59 [facility] Start: 11-19-2014 Alcohol [facility] Start: 1970 Sex Assigned At Not on file C [facility] Progress note 01-13-2023 Note Date & Type Note Facility 01-13-2023 Note HNO ID: [id number] Author: Dewey Crockett II, OD Service: ? Author Type: TOOL SHAPER SETUP OPERATOR Type: Progress Notes Filed: 01/13/2023 4:24 PM Note Text: Assessment and Plan H52.03 Hyperopia of both eyes (primary encounter diagnosis) H52.223 Regular astigmatism of both eyes H52.4 Presbyopia Comment: Ocular health maintained with contact lens use. Good fit. Adapting to monovision puente. Ok to order supply. Recheck in one year. I have confirmed and edited as necessary the relevant ophthalmic history, ROS, and the neuro exam findings as obtained by others. I have seen and examined Rico Shafer. I have discussed the case and the management of this patient's care with the Resident/Fellow, if applicable. I also have reviewed and agree with the assessment and plan as stated above and agree with all of its relevant components. Dewey Crockett II OD [facility] Instructions 01-13-2023 Patient Instructions Note Date & Type Note Facility 01-13-2023 Instructions Dewey Crockett II, OD - 01/13/2023 4:23 PM EDT Assessment and Plan H52.03 Hyperopia of both eyes (primary encounter diagnosis) H52.223 Regular astigmatism of both eyes H52.4 Presbyopia Comment: Ocular health maintained with contact lens use. Good fit. Adapting to monovision puente. Ok to order supply. Recheck in one year. I have confirmed and edited as necessary the relevant ophthalmic history, ROS, and the neuro exam findings as obtained by others. I have seen and examined Rico Shafer. I have discussed the case and the management of this patient's care with the Resident/Fellow, if applicable. I also have reviewed and agree with the assessment and plan as stated above and agree with all of its relevant components. Dewey Crockett II, OD documented in this encounter [facility] History of Present illness Narrative 01-13-2023 Dewey Crockett II, OD - 01/13/2023 4:21 PM EDT Note Date & Type Note Facility 01-13-2023 History of Presen t illness Narrative Assessment and Plan H52.03 Hyperopia of both eyes (primary encounter diagnosis) H52.223 Regular astigmatism of both eyes H52.4 Presbyopia Comment: Ocular health maintained with contact lens use. Good fit. Adapting to monovision puente. Ok to order supply. Recheck in one year. I have confirmed and edited as necessary the relevant ophthalmic history, ROS, and the neuro exam findings as obtained by others. I have seen and examined Rico Shafer. I have discussed the case and the management of this patient's care with the Resident/Fellow, if applicable. I also have reviewed and agree with the assessment and plan as stated above and agree with all of its relevant components. Dewey Crockett II, OD documented in this encounter [facility] Progress note 01-06-2023 Note Date & Type Note Facility 01-06-2023 Note HNO ID: [id number] Author: Dewey Crockett II, OD Service: ? Author Type: TOOL SHAPER SETUP OPERATOR Type: Progress Notes Filed: 01/06/2023 5:25 PM Note Text: Assessment and Plan H52.03 Hyperopia of both eyes (primary encounter diagnosis) H52.223 Regular astigmatism of both eyes H52.4 Presbyopia Comment: Good contact lens candidate. Explained contact lens care, wear time, and handling along with need for good compliance with recommendations to minimize possibility of ocular damage and/or vision loss from use of contact lenses. Recheck trial fit in one week. I have confirmed and edited as necessary the relevant ophthalmic history, ROS, and the neuro exam findings as obtained by others. I have seen and examined Rico M Jae. I have discussed the case and the management of this patient's care with the Resident/Fellow, if applicable. I also have reviewed and agree with the assessment and plan as stated above and agree with all of its relevant components. Dewey Crockett II, OD [facility] Progress note 12-07-2022 Note Date & Type Note Facility 12-07-2022 Note HNO ID: [id number] Author: Bing Crockett OD Service: ? Author Type: TOOL SHAPER SETUP OPERATOR Type: Progress Notes Filed: 12/07/2022 4:26 PM Note Text: ASSESSMENT/PLAN: 1. Hyperopia of both eyes - ICD9: 367.0, ICD10: H52.03 (primary diagnosis) 2. Regular astigmatism of both eyes - ICD9: 367.21, ICD10: H52.223 3. Presbyopia - ICD9: 367.4, ICD10: H52.4 Continue to wear his glasses with the optional update. Recommended yearly exams. Bing Crockett OD I have confirmed and edited as necessary the relevant ophthalmic history, ROS, and the neuro exam findings as obtained by others. [facility] Instructions 12-07-2022 Patient Instructions Note Date & Type Note Facility 12-07-2022 Instructions Bing Crockett OD - 12/07/2022 4:25 PM EDT ASSESSMENT/PLAN: 1. Hyperopia of both eyes - ICD9: 367.0, ICD10: H52.03 (primary diagnosis) 2. Regular astigmatism of both eyes - ICD9: 367.21, ICD10: H52.223 3. Presbyopia - ICD9: 367.4, ICD10: H52.4 Continue to wear his glasses with the optional update. Recommended yearly exams. documented in this encounter [facility] History of Present illness Narrative 12-07-2022 Bing Crockett, OD - 12/07/2022 4:24 PM EDT Note Date & Type Note Facility 12-07-2022 History of Presen t illness Narrative ASSESSMENT/PLAN: 1. Hyperopia of both eyes - ICD9: 367.0, ICD10: H52.03 (primary diagnosis) 2. Regular astigmatism of both eyes - ICD9: 367.21, ICD10: H52.223 3. Presbyopia - ICD9: 367.4, ICD10: H52.4 Continue to wear his glasses with the optional update. Recommended yearly exams. Bing Crockett, SHARRON I have confirmed and edited as necessary the relevant ophthalmic history, ROS, and the neuro exam findings as obtained by others. documented in this encounter [facility] Progress note 11-23-2022 Note Date & Type Note Facility 11-23-2022 Note HNO ID: [id number] Author: Bing Crockett OD Service: ? Author Type: TOOL SHAPER SETUP OPERATOR Type: Progress Notes Filed: 11/23/2022 10:52 AM Note Text: ASSESSMENT/PLAN: 1. Corneal foreign body, right, initial encounter - ICD9: 930.0, E914, ICD10: T15.01XA Current Ophthalmic Meds trimethoprim-polymyxin (POLYTRIM) 10,000 unit- 1 mg/mL ophthalmic solution Use 1 Drop in the right eye four times daily for 7 days. Suggested cool compresses and ibuprofen as needed for comfort. Dilated the eye and warned of blur at near while dilated. - FOREIGN BODY REMOVAL, CORNEA W/ SLIT LAMP Return in 2 weeks Bing Crockett, OD I have confirmed and edited as necessary the relevant ophthalmic history, ROS, and the neuro exam findings as obtained by others. [facility] Evaluation note Note Date & Type Note Facility documented in this encounter [facility] Evaluation note Note Date & Type Note Facility documented in this encounter [facility] Summary Purpose Family History No Family History Records FoundNo Family History Records Found Advance Directives No Advanced Directives Records FoundNo Advanced Directives Records Found Medications Administered Section Inactive Administered Medications - up to 3 most recent administrations Medication Order MAR Action Action Date Dose Rate Site tropicamide 0.5 % 1 Drop (MYDRIACYL) 1 Drop, BOTH EYES, ONCE, 1 dose, On 12/07/22 at 1630, FOR THE EYE Given 12/07/2022 4:30 PM EDT 1 Drop Additional Source Comments (unrecognized sect ion and content) No Status Records FoundNo Status Records Found INFORMATION SOURCE (unrecogn ized section and content) DATE CREATED AUTHOR AUTHOR'S ORGANIZ ATION 01/14/2023 [facility] Source Comments (unrecognize d section and content) In the event this informatio n is protected by the Federal Confidentiality of Alcohol and Drug Abuse Patient Records regulations: The Federal rules restrict any use of the information to criminally investigate or prosecute any alcohol or drug abuse patient.[facility] event this information is protected by the Federal Confidentiality of Alcohol and Drug Abuse Patient Records regulations: The Federal rules restrict any use of the information to criminally investigate or prosecute any alcohol or drug abuse patient.[facility] Reason for Visit (unrecogniz ed section and content) Reason Comments Contact Lens Follow Up Care Teams (unrecognized sec tion and content) Director Of Event Management Relationship Specialty Start Date End Date Yennifer Roach MD PCP - General Family Medicine 07/11/14 FOR RECORDS PERTAINING TO PATIENTS WHO ARE OR HAVE BEEN ENROLLED IN A CHEMICAL DEPENDENCY/SUBSTANCEABUSE PROGRAM, SOME INFORMATION MAY BE OMITTED. This clinical summary was aggregated from multiple sources. Caution should be exercised in using it in the provision of clinical care. This summary normalizes information from multiple sources, and as a consequence, information in this document may materially change the coding, format and clinical context of patient data. In addition, data may be omitted in some cases. CLINICAL DECISIONS SHOULD BE BASED ON THE PRIMARY CLINICAL RECORDS. [facility]. provides no warranty or guarantee of the accuracy or completeness of information in this document.
[2023-04-29 17:48] LABS: Absolute Lymphocyte Count 1.71 X10^3/uL (0.83-4.51); Absolute Neutrophil Count 2.1 X10^3/uL (2.0-7.7); Basophil# 0.02 X10^3/uL; Basophil% 0.5 % (0-1); Eosinophil# 0.05 X10^3/uL; Eosinophils% 1.2 % (0-5); Lymphocyte # 1.71 X10^3/ul (0.83-4.51); Lymphocyte % 39.9 % (19-41); Mean Corp Hgb Conc 33.3 g/dL (32-36); Mean Corpuscular Hgb 31.5 pg (27.0-32.0); Mean Corpuscular Volume 94.4 fL (80-94); Mean Platelet Vol. 9.6 fl (6.2-12.0); Monocyte# 0.43 X10^3/uL; NRBC Flagged by Analyzer 0 % (0-5); Neutrophil # 2.08 X10^3/uL (2.7-7.7); Neutrophil % 48.4 % (47-70); Platelet Count 252 K/mm3 (150-450); RBC Distribution Width CV 12.2 % (11.6-14.6); RBC Distribution Width SD 42.7 fl (35.1-43.9); Red Blood Count 4.45 M/mm3 (4.6-6.2); White Blood Count 4.3 K/mm3 (4.4-11.0)
[2023-04-29 18:25] LABS: ALB/GLOB Ratio 1.4 RATIO (0.9-2.4); AST(SGOT) 27 U/L (15-37); Alanine Aminotransfer ALT/SGPT 41 U/L (16-61); Albumin, Serum 4.3 g/dL (3.2-5.0); Alkaline Phosphatase 66 U/L (45-117); Anion Gap 4 (5-15); BUN 16 mg/dL (7-18); BUN/Creat Ratio 16.6 RATIO (10-20); Calcium,Total 9.5 mg/dL (8.5-10.1); Chloride 104 mmol/L (98-107); Cholesterol 173 mg/dL (200); Creatinine, Serum 0.96 mg/dL (0.70-1.30); EST Glomerular Filtration Rate 87 mL/min (>60); Est Glom Filt Rate - Afr Amer 105 mL/min (>60); Glucose 94 mg/dL (74-106); High Density Lipoprotein 49 mg/dL; PSA,Total - Annual Screen 2.34 ng/mL (0.00-4.00); Potassium 3.9 mmol/L (3.5-5.1); Protein, Total 7.3 g/dL (6.4-8.2); Sodium Level 138 mmol/L (136-145); T4 Free Direct 1.25 ng/dL (0.76-1.46); Thyroid Stim Hormone (TSH) 0.64 uIU/mL (0.358-3.74); Triglycerides 126 mg/dL; Very Low Density Lipoprotein 25 mg/dL (5-40)
[2023-05-09 02:06] LABS: Anti-Thyroglobulin AB 2.2 IU/mL (0.0-0.9); Thyroglobulin RIA 2.5 ng/mL (.); Thyroid Peroxidase AB 31 IU/mL (0-34)
== END | disposition home or self-care (01) ==
LOC: MFPLAB 16:06
PROVIDERS: PCP Family Medicine; Visit Provider Family Medicine
DX: E03.9 Hypothyroidism, unspecified (principal); Z12.5 Encounter for screening for malignant neoplasm of prostate; E55.9 Vitamin D deficiency, unspecified
CPT/HCPCS: 36415; 80053; 80061; 82306; 84153; 84432; 84439; 84443; 85025; 86376; 86800; G0103

== ENCOUNTER → 2024-03-20 | Outpatient (CLI) | payer OTHER, SELFPAY ==
[2024-03-20 17:31] LABS: Absolute Lymphocyte Count 1.66 X10^3/uL (0.83-4.51); Absolute Neutrophil Count 1.7 X10^3/uL (2.0-7.7); Basophil# 0.03 X10^3/uL; Basophil% 0.8 % (0-1); Eosinophil# 0.04 X10^3/uL; Hematocrit 41.3 % (40-54); Hemoglobin 13.4 g/dL (13.0-16.5); Lymphocyte # 1.66 X10^3/ul (0.83-4.51); Lymphocyte % 42.7 % (19-41); Mean Corp Hgb Conc 32.4 g/dL (32-36); Mean Corpuscular Hgb 30.6 pg (27.0-32.0); Mean Corpuscular Volume 94.3 fL (80-94); Mean Platelet Vol. 9.6 fl (6.2-12.0); Monocyte# 0.42 X10^3/uL; Monocyte% 10.8 % (0-10); NRBC Flagged by Analyzer 0 % (0-5); Neutrophil # 1.74 X10^3/uL (2.7-7.7); Neutrophil % 44.7 % (47-70); Platelet Count 208 K/mm3 (150-450); RBC Distribution Width CV 11.9 % (11.6-14.6); RBC Distribution Width SD 41.7 fl (35.1-43.9); Red Blood Count 4.38 M/mm3 (4.6-6.2); White Blood Count 3.9 K/mm3 (4.4-11.0)
[2024-03-20 19:03] LABS: Vitamin D,25 Hydroxy 49.2 ng/mL
[2024-03-20 20:00] LABS: ALB/GLOB Ratio 1.3 RATIO (0.9-2.4); AST(SGOT) 24 U/L (15-37); Alanine Aminotransfer ALT/SGPT 31 U/L (16-61); Alkaline Phosphatase 59 U/L (45-117); Anion Gap 5 (5-15); BUN 18 mg/dL (7-18); BUN/Creat Ratio 17.8 RATIO (10-20); Calcium,Total 9.6 mg/dL (8.5-10.1); Chloride 104 mmol/L (98-107); Creatinine, Serum 1.01 mg/dL (0.70-1.30); EST Glomerular Filtration Rate 82 mL/min (>60); Est Glom Filt Rate - Afr Amer 99 mL/min (>60); Glucose 89 mg/dL (74-106); Potassium 4.2 mmol/L (3.5-5.1); Sodium Level 138 mmol/L (136-145); T4 Free Direct 1.13 ng/dL (0.76-1.46); Thyroid Stim Hormone (TSH) 0.581 uIU/mL (0.358-3.740)
== END | disposition home or self-care (01) ==
PROVIDERS: PCP Family Medicine; Referring Provider Family Medicine; Visit Provider Family Medicine
DX: E55.9 Vitamin D deficiency, unspecified (principal); E03.8 Other specified hypothyroidism; Z12.5 Encounter for screening for malignant neoplasm of prostate
CPT/HCPCS: 36415; 80053; 82306; 84439; 84443; 85025

== ENCOUNTER → 2024-04-20 | Outpatient (CLI) | payer OTHER, SELFPAY ==
--- NOTE | 2024-04-20 08:35 | EKG12_ITS ---
Test Reason : PRE OP Blood Pressure : */* mmHG Vent. Rate : 81 BPM Atrial Rate : 81 BPM P-R Int : 142 ms QRS Dur : 100 ms QT Int : 370 ms P-R-T Axes : 75 65 45 degrees QTcB Int : 429 ms Normal sinus rhythm Normal ECG Confirmed by Mata Murillo ([id number]), fan mail editor AMPARO MARTELL ([id number]) on 04/21/2024 5:56:27 AM Referred By: Chino Yang Confirmed By: Mata Murillo
== END | disposition home or self-care (01) ==
PROVIDERS: PCP Family Medicine; Referring Provider Student in an Organized Health Care Education/Training Program; Visit Provider Student in an Organized Health Care Education/Training Program
DX: Z01.818 Encounter for other preprocedural examination (principal); Z01.810 Encounter for preprocedural cardiovascular examination
CPT/HCPCS: 93005

== ENCOUNTER → 2024-06-02 | Outpatient (CLI) | payer OTHER, SELFPAY ==
[2024-06-02 18:02] LABS: PSA,Total - Annual Screen 2.09 ng/mL (0.00-4.00)
== END | disposition home or self-care (01) ==
LOC: MFPLAB 16:53
PROVIDERS: PCP Family Medicine; Referring Provider Family Medicine; Visit Provider Family Medicine
DX: Z12.5 Encounter for screening for malignant neoplasm of prostate (principal)
CPT/HCPCS: 36415; 84153; G0103